=== PATIENT | male | born 1960 | race Two or more races ===

== ENCOUNTER 2018-01-27 06:27 | Emergency (ER) | payer BC ==
[~2018-01-27] VITALS: Ht 170.2 cm; Wt 81.6 kg
[2018-01-27] MEDS ORDERED: ATORVASTATIN CA20 MG (06:45)
[2018-01-27] MEDS ORDERED: EZETIMIBE10 MG (06:45)
[2018-01-27] MEDS ORDERED: HYDROCHLOROTHIA25 MG (06:46)
== END 2018-01-27 09:02 | disposition home or self-care (01) ==
LOC: ER 06:27
DX: S60.021A Contusion of right index finger without damage to nail, initial encounter (principal); W22.8XXA Striking against or struck by other objects, initial encounter; Y93.89 Activity, other specified; Y92.89 Other specified places as the place of occurrence of the external cause; Y99.8 Other external cause status

== ENCOUNTER 2021-06-14 08:43 | Emergency (ER) | payer BC ==
[~2021-06-14] VITALS: Ht 170.2 cm; Wt 79.8 kg
[~2021-06-14 08:43] MED LIST: ATORVASTATIN CA20 MG; EZETIMIBE10 MG; HYDROCHLOROTHIA25 MG
[2021-06-14] MEDS ORDERED: ZESTRIL2.5 MG PO (08:55)
[2021-06-14] MEDS ORDERED: BACTRIM 400-801 EACH PO (13:16)
== END 2021-06-14 14:44 | disposition home or self-care (01) ==
LOC: ER 08:43
DX: S80.862A Insect bite (nonvenomous), left lower leg, initial encounter (principal); L03.116 Cellulitis of left lower limb; W57.XXXA Bitten or stung by nonvenomous insect and other nonvenomous arthropods, initial encounter; Y92.89 Other specified places as the place of occurrence of the external cause; I10 Essential (primary) hypertension

== ENCOUNTER 2023-06-24 09:22 | Emergency (ER) | payer BC ==
[~2023-06-24] VITALS: Ht 170.2 cm; Wt 79.4 kg
[~2023-06-24 09:22] MED LIST changes: +BACTRIM 400-801 EACH PO; +ZESTRIL2.5 MG PO
[2023-06-24] MEDS ORDERED: NORFLEX100MG PO (14:35)
== END 2023-06-24 14:44 | disposition home or self-care (01) ==
LOC: ER
DX: S00.83XA Contusion of other part of head, initial encounter (principal); W18.39XA Other fall on same level, initial encounter; Y93.89 Activity, other specified; Y92.89 Other specified places as the place of occurrence of the external cause; Y99.9 Unspecified external cause status; I10 Essential (primary) hypertension